=== PATIENT | female | born 2000 | race Caucasian/White ===

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

== ENCOUNTER → 2019-06-12 | Outpatient (CLI) | payer BC | LOC: RAD 15:43 | DX: K59.01 Slow transit constipation (principal); J30.9 Allergic rhinitis, unspecified; H10.13 Acute atopic conjunctivitis, bilateral ==

== ENCOUNTER → 2019-09-12 | Outpatient (CLI) | payer SELFPAY ==
[2019-06-30 17:40] VITALS: BP 97/74
[~2019-09-12] MED LIST: ZOFRAN4 M2 PO
[2019-09-12 12:40] LABS: EOS % 0.2 % (0.1-4.0); HEMATOCRIT 44.5 % (35.0-45.0); HEMOGLOBIN 14.6 g/dL (12.0-15.0); LYMPH# 1.6 (1.20-3.40); MEAN CELL VOLUME 89 fl (78-95); MEAN CORPUSCULAR HEMOGLOBIN 29 pg (26-32); MEAN CORPUSCULAR HGB CONC 33 g/dL (33-37); MEAN PLATELET VOLUME 10.5 fl (7.4-10.4); MONO # 0.5 (0.10-0.60); NEU # 6.7 (1.40-6.50); PLATELET COUNT 250 K/mm3 (130-400); RED BLOOD COUNT 5.03 M/mm3 (4.10-5.30); RED CELL DISTRIBUTION WIDTH 12.5 % (11.5-14.5); WHITE BLOOD COUNT 8.9 K/mm3 (4.8-10.8)
[2019-09-12 13:59] LABS: ERYTHROCYTE SEDIMENTATION RATE 1 mm/hr (0-20)
== END ==
LOC: LAB 12:28
PROVIDERS: Family Medicine
DX: Z02.89 Encounter for other administrative examinations (principal); K59.01 Slow transit constipation; K58.1 Irritable bowel syndrome with constipation; Z86.59 Personal history of other mental and behavioral disorders

== ENCOUNTER → 2020-01-30 | Outpatient (CLI) | payer SELFPAY ==
[2019-06-30 17:40] VITALS: BP 97/74
== END ==
LOC: LAB 14:42
DX: G52.0 Disorders of olfactory nerve (principal); R50.9 Fever, unspecified; R11.0 Nausea; R19.5 Other fecal abnormalities; R19.7 Diarrhea, unspecified; R42 Dizziness and giddiness; R43.2 Parageusia; R53.83 Other fatigue; R61 Generalized hyperhidrosis

== ENCOUNTER → 2020-03-31 | Outpatient (CLI) | payer SELFPAY ==
[2019-06-30 17:40] VITALS: BP 97/74
== END ==
LOC: LAB 13:44
DX: R05 Cough (principal); R68.83 Chills (without fever); R19.7 Diarrhea, unspecified; J02.9 Acute pharyngitis, unspecified; Z20.828 Contact with and (suspected) exposure to other viral communicable diseases

== ENCOUNTER → 2020-10-22 | Outpatient (CLI) | payer BC ==
[2019-06-30 17:40] VITALS: BP 97/74
== END ==
LOC: LAB 13:33
DX: R11.2 Nausea with vomiting, unspecified (principal); Z20.822 Contact with and (suspected) exposure to COVID-19

== ENCOUNTER → 2020-12-13 | Outpatient (CLI) | payer BC ==
[2019-06-30 17:40] VITALS: BP 97/74
[~2020-12-13] MED LIST changes: +KLONOPIN 1MG1 MG PO; +PEPCID 20MG TAB20 MG PO; +PRILOSEC 20MG20 MG PO
== END ==
LOC: LAB 13:52
DX: Z20.822 Contact with and (suspected) exposure to COVID-19 (principal)

== ENCOUNTER → 2021-01-05 | Outpatient (CLI) | payer BC ==
[2019-06-30 17:40] VITALS: BP 97/74
[2021-01-05 15:53] LABS: HEMATOCRIT 43.3 % (37.0-47.0); HEMOGLOBIN 14.1 g/dL (12.5-16.0); MEAN CELL VOLUME 89 fl (78-100); MEAN CORPUSCULAR HEMOGLOBIN 29 pg (27-31); MEAN CORPUSCULAR HGB CONC 33 g/dL (33-37); MEAN PLATELET VOLUME 10.8 fl (7.4-10.4); PLATELET COUNT 212 K/mm3 (130-400); RED BLOOD COUNT 4.88 M/mm3 (4.10-5.30); WHITE BLOOD COUNT 12.2 K/mm3 (4.8-10.8)
[2021-01-05 15:56] LABS: ALBUMIN 4.4 g/dL (3.5-5.0)
[2021-01-05 15:57] LABS: POTASSIUM 3.9 mmol/L (3.5-5.1)
[2021-01-05 15:58] LABS: CALCIUM 9.2 mg/dL (8.3-10.5)
[2021-01-05 15:59] LABS: TOTAL PROTEIN 7.1 g/dL (6.4-8.3)
[2021-01-05 16:01] LABS: TOTAL BILIRUBIN 1.8 mg/dL (0.2-1.2)
[2021-01-05 16:20] LABS: LYMPHOCYTE 1 % (20-51); NEUTROPHILS 93 % (42-75)
[2021-01-05 16:21] LABS: BAND 4 % (0-10); MONOCYTE 2 % (3-10)
[2021-01-05 17:27] LABS: URINE APPEARANCE CLEAR; URINE COLOR LIGHT YELLOW
[2021-01-05 17:28] LABS: URINE BILIRUBIN NEGATIVE (NEGATIVE); URINE BLOOD TRACE (NEGATIVE); URINE GLUCOSE NEGATIVE (NEGATIVE); URINE KETONE NEGATIVE (NEGATIVE); URINE LEUKOCYTE ESTERASE NEGATIVE (NEGATIVE); URINE NITRATE NEGATIVE (NEGATIVE); URINE PROTEIN(semi-quant) 1+ mg/dL (NEGATIVE); URINE UROBILINOGEN NORMAL (NORMAL)
== END ==
LOC: LAB 15:29
PROVIDERS: Nurse Practitioner
DX: R10.31 Right lower quadrant pain (principal)
CPT/HCPCS: Q9967

== ENCOUNTER 2021-04-20 15:42 | Emergency (ER) | payer BC ==
[~2021-04-20 15:42] MED LIST changes: -KLONOPIN 1MG1 MG PO; -PEPCID 20MG TAB20 MG PO; -PRILOSEC 20MG20 MG PO
[2021-04-20] MEDS ORDERED: KLONOPIN 1MG1 MG PO (16:02)
[2021-04-20 16:08] LABS: BASO # 0.04 (0.02-0.10); EOS # 0.06 (0.04-0.40); EOS % 0.6 % (1.0-5.0); HEMATOCRIT 42.8 % (37.0-47.0); HEMOGLOBIN 14.1 g/dL (12.5-16.0); LYMPH# 2.39 (1.50-4.00); MEAN CELL VOLUME 90 fl (78-100); MEAN CORPUSCULAR HEMOGLOBIN 30 pg (27-31); MEAN CORPUSCULAR HGB CONC 33 g/dL (33-37); MEAN PLATELET VOLUME 10.6 fl (7.4-10.4); MONO # 0.53 (0.20-0.80); NEU # 6.95 (1.40-6.50); PLATELET COUNT 211 K/mm3 (130-400); RED BLOOD COUNT 4.78 M/mm3 (4.10-5.30); RED CELL DISTRIBUTION WIDTH 12.5 % (11.5-14.5)
[2021-04-20 16:19] LABS: ALBUMIN 4.6 g/dL (3.5-5.0)
[2021-04-20 16:20] LABS: POTASSIUM 3.7 mmol/L (3.5-5.1); SODIUM 141 mmol/L (136-145)
[2021-04-20 16:21] LABS: CALCIUM 9.8 mg/dL (8.3-10.5)
[2021-04-20 16:22] LABS: GLUCOSE 91 mg/dL (65-105); TOTAL PROTEIN 7.2 g/dL (6.4-8.3)
[2021-04-20 16:23] LABS: CARBON DIOXIDE 21 mmol/L (22-29)
[2021-04-20 16:27] LABS: AST-SGOT 13 U/L (5-34)
[2021-04-20 16:29] LABS: ALT/SGPT 10 U/L (0-55)
[2021-04-20 16:35] LABS: URINE APPEARANCE CLEAR; URINE BILIRUBIN NEGATIVE (NEGATIVE); URINE COLOR YELLOW; URINE GLUCOSE NEGATIVE (NEGATIVE); URINE KETONE NEGATIVE (NEGATIVE); URINE NITRATE NEGATIVE (NEGATIVE); URINE PROTEIN(semi-quant) NEGATIVE (NEGATIVE); URINE UROBILINOGEN NORMAL (NORMAL)
[2021-04-20 16:36] LABS: URINE BLOOD TRACE (NEGATIVE); URINE LEUKOCYTE ESTERASE NEGATIVE (NEGATIVE); URINE WBC 0-1 /hpf (0-3)
[2021-04-20 16:43] LABS: D-DIMER 0.38 mg/L FEU (0.15-0.50); TROPONIN-I < 0.03 ng/mL (<0.030)
[2021-04-20] MEDS ORDERED: PRILOSEC 20MG20 MG PO (17:19)
[2021-04-20] MEDS ORDERED: PEPCID 20MG TAB20 MG PO (17:19)
[2021-04-20 17:25] VITALS: BP 135/82
== END 2021-04-20 17:28 | disposition home or self-care (01) ==
LOC: ED 15:42
PROVIDERS: Physician Assistant
DX: K21.9 Gastro-esophageal reflux disease without esophagitis (principal); F41.9 Anxiety disorder, unspecified; Z79.899 Other long term (current) drug therapy

== ENCOUNTER → 2021-06-27 | Outpatient (CLI) | payer BC ==
[~2021-06-27] MED LIST changes: +KLONOPIN 1MG1 MG PO; +PEPCID 20MG TAB20 MG PO; +PRILOSEC 20MG20 MG PO
[2021-06-27 17:44] LABS: BASO # 0.05 (0.02-0.10); EOS # 0.24 (0.04-0.40); EOS % 3.4 % (1.0-5.0); HEMATOCRIT 41.9 % (37.0-47.0); HEMOGLOBIN 13.9 g/dL (12.5-16.0); LYMPH# 2.13 (1.50-4.00); MEAN CELL VOLUME 91 fl (78-100); MEAN CORPUSCULAR HEMOGLOBIN 30 pg (27-31); MEAN CORPUSCULAR HGB CONC 33 g/dL (33-37); MEAN PLATELET VOLUME 10.5 fl (7.4-10.4); MONO # 0.32 (0.20-0.80); NEU # 4.38 (1.40-6.50); PLATELET COUNT 235 K/mm3 (130-400); RED BLOOD COUNT 4.61 M/mm3 (4.10-5.30); RED CELL DISTRIBUTION WIDTH 12.3 % (11.5-14.5); WHITE BLOOD COUNT 7.1 K/mm3 (4.8-10.8)
[2021-06-27 19:09] LABS: ERYTHROCYTE SEDIMENTATION RATE 5 mm/hr (0-20)
== END ==
LOC: LAB 17:12
PROVIDERS: Family Medicine
DX: S61.452D Open bite of left hand, subsequent encounter (principal); S61.451D Open bite of right hand, subsequent encounter; W55.01XD Bitten by cat, subsequent encounter

== ENCOUNTER → 2021-11-16 | Outpatient (CLI) | payer BC ==
[2021-11-16 16:12] LABS: ALBUMIN 4.5 g/dL (3.5-5.0)
[2021-11-16 16:13] LABS: POTASSIUM 4.6 mmol/L (3.5-5.1)
[2021-11-16 16:14] LABS: CALCIUM 9.9 mg/dL (8.3-10.5)
[2021-11-16 16:15] LABS: TOTAL PROTEIN 7.4 g/dL (6.4-8.3)
[2021-11-16 16:17] LABS: TOTAL BILIRUBIN 1.2 mg/dL (0.2-1.2)
== END ==
LOC: LAB 15:41
PROVIDERS: Family Medicine
DX: F41.9 Anxiety disorder, unspecified (principal); Z68.1 Body mass index [BMI] 19.9 or less, adult; R61 Generalized hyperhidrosis

== ENCOUNTER → 2022-03-31 | Outpatient (CLI) | payer SELFPAY ==
[2022-03-31 11:42] LABS: POTASSIUM 4.4 mmol/L (3.5-5.1)
[2022-03-31 11:43] LABS: CALCIUM 9.8 mg/dL (8.3-10.5)
== END ==
LOC: LAB 10:52
PROVIDERS: Family Medicine
DX: F41.8 Other specified anxiety disorders (principal)

== ENCOUNTER → 2023-10-18 | Outpatient (CLI) | payer SELFPAY ==
[2023-10-18 17:48] LABS: ALBUMIN 4.8 g/dL (3.5-5.0); SODIUM 139 mmol/L (136-145)
[2023-10-18 17:49] LABS: CALCIUM 10.2 mg/dL (8.3-10.5)
[2023-10-18 17:50] LABS: GLUCOSE 88 mg/dL (65-105)
[2023-10-18 17:52] LABS: CARBON DIOXIDE 25 mmol/L (22-29); TOTAL BILIRUBIN 1.1 mg/dL (0.2-1.2)
[2023-10-18 17:56] LABS: AST-SGOT 15 U/L (5-34)
[2023-10-18 17:57] LABS: ALT/SGPT 11 U/L (0-55)
== END ==
LOC: LAB 17:12
PROVIDERS: Family Medicine
DX: R61 Generalized hyperhidrosis (principal)

== ENCOUNTER → 2024-03-15 | Outpatient (CLI) | payer SELFPAY ==
[2024-03-15 12:32] LABS: ALBUMIN 4.6 g/dL (3.5-5.0)
[2024-03-15 12:34] LABS: TOTAL PROTEIN 7.1 g/dL (6.4-8.3)
[2024-03-15 12:36] LABS: TOTAL BILIRUBIN 0.9 mg/dL (0.2-1.2)
== END ==
LOC: LAB 11:57
PROVIDERS: Physician Assistant
DX: Z13.1 Encounter for screening for diabetes mellitus (principal); Z13.29 Encounter for screening for other suspected endocrine disorder; B35.1 Tinea unguium

== ENCOUNTER → 2024-09-05 | Outpatient (CLI) | payer OTHER ==
[2024-09-05 14:54] LABS: ALBUMIN 4.8 g/dL (3.5-5.0)
[2024-09-05 14:55] LABS: CALCIUM 10.2 mg/dL (8.3-10.5)
[2024-09-05 14:57] LABS: TOTAL PROTEIN 7.2 g/dL (6.4-8.3)
[2024-09-05 14:58] LABS: TOTAL BILIRUBIN 1.6 mg/dL (0.2-1.2)
== END ==
LOC: LAB 14:33
PROVIDERS: Physician Assistant
DX: B35.1 Tinea unguium (principal)

== ENCOUNTER → 2024-10-27 | Outpatient (CLI) | payer OTHER ==
[2024-10-27 17:13] LABS: CLUE CELLS NOT OBSERVED (Not Observd)
== END ==
LOC: LAB 16:48
PROVIDERS: Nurse Practitioner Family
DX: Z20.2 Contact with and (suspected) exposure to infections with a predominantly sexual mode of transmission (principal)
CPT/HCPCS: Q0111